=== PATIENT | male | born 1965 | race Asian ===

== ENCOUNTER 2024-02-27 21:11 | Emergency (ER) | payer SELFPAY ==
[2024-02-27 21:27] VITALS: BP 201/109
[2024-02-27 21:36] VITALS: BP 215/108
[2024-02-27 21:40] VITALS: BP 214/102
--- NOTE | 2024-02-27 21:47 | ED.GENMED ---
History of Present Illness
General
Chief Complaint: Blood Pressure Problem
Source: patient and clinical product manager (Language line)
Exam Limitations: other (Language barrier)
Time Seen by Provider: 02/27/24 21:14
History of Present Illness
History of Present Illness:
This is a 58 year old male that is brought in by police. Police where taking patient to [facility] and they said that his BP was to high. Patient was brought to the ER. Patient via the language line states that he has had a cough and has felt SOB.
States that he also has chest pressure. States that when he is walking he feels that he is walking on [place]. Denies any fever, chills, abd pain, nausea, vomiting, diarrhea, headache, dizziness, urinary burning.
Past History
Past History
ED Past Medical History: None; Negative Asthma, HTN, Hypercholesterolemia or NIDDM
ED Past Surgical History: None
Social History
Tobacco: Smoker
Alcohol: None
Personal: Single
Living: alone
Review of Systems
Review of Systems
All Other Systems: ROS reviewed and negative except as documented in HPI and ROS
Constitutional: Denies fever or chills
EENT: Reports no symptoms
Respiratory: Reports trouble breathing; Denies cough
Cardiac: Reports chest pain (Pressure)
ABD/GI: Reports no symptoms; Denies abdominal pain, nausea, vomiting, diarrhea or black stools
: Reports no symptoms; Denies dysuria, frequency or urgency
Musculoskeletal: Reports no symptoms
Skin: Reports no symptoms
Neurological: Denies dizzy or headache
Psychiatric: Reports no symptoms
Phy Exam
General Physical Exam
General Presentation: no apparent distress
General age: appears stated age
General Skin: warm and dry
General Habitus: normal
General Mental: alert
General Hydration: appears well hydrated
ENT Exam
ENT Exam: TM's normal, pharynx normal and neck supple
Eye Exam
Eye Exam: EOMI
Cardiovascular Exam
Cardiovascular Exam: regular rate/rhythm, no edema, no murmur and normal peripheral pulses
Pulmonary Exam
Pulmonary Exam: lungs clear, no respiratory distress, no rales, chest non tender, no crackles, no rhonchi, no wheezing and no cough
Gastrointestinal Exam
Gastrointestinal Exam: normal bowel sounds, non tender, soft, no organomegaly, no pulsatile mass and non distended
Musculoskeletal Exam
Musculoskeletal Exam: full ROM and no edema
Skin Exam
Skin Exam: normal color, warm/dry, no rash and no petechia
Psychiatric Exam
Psychiatric Exam: normal mood/affect
Course
Orders/Labs/Results
Orders:
Orders
02/27/24 21:47
HydrALAZINE [Apresoline] 10 mg IV NOW STA
02/27/24 21:48
CR Chest - 2 Views Urgent
Comment:
Reason For Exam: SOB, cough
02/27/24 21:53
Complete Blood Count/With Diff Urgent
Comprehensive Metabolic Panel Urgent
Troponin I Urgent
02/27/24 21:55
Electrocardiogram (*1) Urgent
Reason for Study: Hypertension, Benign
EKG- Treatment ONCE
Abnormal Lab Results
02/27/24
21:53
MCV 78.9 L fL
(80.0-94.0)
Glucose 307 H mg/dl
(70-99)
Total Bilirubin 1.4 H mg/dl
(0.2-1.3)
02/27/24 21:53
02/27/24 21:53
Hyperglycemia, Troponin <0.012,
Vital Signs
Initial and Last Documented VS:
Initial Vital Signs
Temp Pulse Resp BP Pulse Ox
97.8 F 96 18 201/109 100
02/27/24 21:27 02/27/24 21:27 02/27/24 21:27 02/27/24 21:27 02/27/24 21:27
Last Documented Vital Signs
Temp Pulse Resp BP Pulse Ox
97.8 F 83 19 178/93 99
02/27/24 21:27 02/27/24 22:30 02/27/24 22:30 02/27/24 22:30 02/27/24 22:30
MDM/Problems Addressed
Differential Diagnosis Includes:
Hypertension,
MDM/Problems Addressed:
This is a 58 year old male that comes in with hypertension. Patient was taken to the [facility] by police and they were told that his BP was to high. Patient was brought here to be evaluated. States that he has chest pressure and SOB. States that he
has had a cough and feels like he is walking on [place].
Will check labs and medicate for his Hypertension.
Chronic conditions affecting care:
NA
Acute Exacerbation and/or Progression of Chronic Illness:
NA
*Radiology
Radiology exam reviewed: radiology read reviewed (Chest-NO acute cardiopulmonary process)
*Pulse Oximetry
Patient hypoxic: no
*EKG
Interpreted by ED Provider?: Yes
Heart Rate: 81
Rate: normal
Rhythm: sinus
[place]: normal axis
Interval: normal interval
QRS Pattern: right bundle branch block
Ischemia: T-wave inversion (II, III, aVR, aVF, checked by Dr. Evans)
*Weld Fitter Interpretation
Rate: normal
Heart Rate: 77
Rhythm: sinus
*Critical Care Note
Total Time (30-74mins, 75-104mins- exclusive of procedures): Not Applicable
ED Attending Note
-
Portions of this chart may have been created with voice recognition software.� Occasional wrong word or��sound alike� substitutions may have occurred due to the inherent limitations of voice recognition software.
Discharge Plan
Departure
Patient Disposition: [facility]
Date of Disposition: 02/27/24
Time of Disposition: 22:45
Patient with high blood pressure during this ER visit?: Yes
Condition: Good
Covid-19: Not Applicable
Discharge Problem:
Hypertension, New onset type 2 diabetes mellitus
Instructions: High Blood Pressure (DC), Diabetes and diet, BLOOD PRESSURE
Prescriptions:
New
amlodipine [Norvasc] 5 mg tablet
5 mg PO DAILY Qty: 30 0RF
metformin 500 mg tablet
500 mg PO BID Qty: 60 0RF
Activity Restrictions/Additional Instructions:
As discussed, you have been given medication and your blood pressure has come down. You have also been given a prescription for medication to take daily to control your blood pressure. You also appear to have diabetes. You have been started on
Metformin to help lower your blood sugar. Please take this in the morning and again at night. Follow up with the family doctor. PLEASE RECHECK YOUR BLOOD WORK IN 1 WEEKS. IF YOU HAVE ANY OTHER CONCERNS PLEASE RETURN TO THE EMERGENCY ROOM.
Interventions
Interventions:
*Risk Screen - Suicide Last Done: 02/27/24 21:27
*General Assessment Last Done: 02/27/24 21:27
*Neglect/Abuse Screening Last Done: 02/27/24 21:27
*ED COVID-19 Vaccine History Last Done: 02/27/24 21:27
ED- Cardiac Assessment Last Done: 02/27/24 21:39
ED- Neurological Assessment Last Done: 02/27/24 21:39
ED- Pulmonary Assessment Last Done: 02/27/24 21:39
Discharge Date and Time
Print Language: BRAZILIAN
[2024-02-27] MEDS: APRESOLINE 10 MG IV (21:51)
[2024-02-27 22:00] VITALS: BP 189/94
[2024-02-27 22:00] LABS: % Basophils 0.3 % (0-2); % Eosinophils 2.2 % (0-6); % Immature Granulocytes 0.3 % (0-0.5); % Monocytes 5.9 % (1.7-9.3); % Neutrophils 62.3 % (42.2-75.2); Absolute Eosinophils 0.2 10^3/uL (0-0.7); Absolute Lymphocytes 2.5 10^3/uL (1.2-3.4); Absolute Monocytes 0.5 10^3/uL (0.1-0.6); Absolute Neutrophils 5.4 10^3/uL (1.4-6.5); Hematocrit 46.8 % (39.0-52.0); Hemoglobin 16.3 g/dL (13.0-18.0); Mean Corp Hgb Conc. 34.8 g/dL (33.0-37.0); Mean Corpuscular Hgb 27.5 pg (27.0-31.0); Mean Corpuscular Volume 78.9 fL (80.0-94.0); Mean Platelet Volume 9.1 fL (7.4-10.4); Nucleated Red Blood Cells % 0 % (-); Platelet Count 213 10^3/uL (130-400); Red Blood Cell Count 5.93 10^6/uL (4.70-6.10); Red Cell Dist. Width 12.4 % (11.5-14.5); White Blood Cell Count 8.7 10^3/uL (4.8-10.8)
[2024-02-27 22:18] LABS: ALT (SGPT) 17 U/L (0-50); AST (SGOT) 27 U/L (17-59); Albumin 4.2 g/dl (3.5-5.0); Alkaline Phosphatase 104 U/L (38-126); Blood Urea Nitrogen 16 mg/dl (9-20); Calcium 9.3 mg/dl (8.4-10.2); Carbon Dioxide 27 mmol/L (22-30); Chloride 101 mmol/L (98-107); Glucose 307 mg/dl (70-99); Potassium 4.1 mmol/L (3.5-5.1); Sodium 135 mmol/L (135-145); Total Bilirubin 1.4 mg/dl (0.2-1.3); Total Protein 7.1 g/dl (6.3-8.2); eGFR > 60.00
[2024-02-27 22:23] LABS: Troponin I < 0.012 ng/ml
[2024-02-27 22:30] VITALS: BP 178/93
[2024-02-27] MEDS: NORVASC 10 MG PO (22:56)
[2024-02-27] MEDS: GLUCOPHAGE 500 MG PO (22:56)
== END 2024-02-27 23:00 ==
LOC: EMR 21:11
PROVIDERS: Clinical Nurse Specialist Family Health; EMERGENCY PHYSICIAN Emergency Medicine
DX: R07.89 Other chest pain (principal); R06.02 Shortness of breath; R05.9 Cough, unspecified; Z02.79 Encounter for issue of other medical certificate; E11.65 Type 2 diabetes mellitus with hyperglycemia; I10 Essential (primary) hypertension; I45.10 Unspecified right bundle-branch block; Z65.3 Problems related to other legal circumstances; F17.200 Nicotine dependence, unspecified, uncomplicated
CPT/HCPCS: 99284; 96374; 71046; 80053; 84484; 85025; 93005